=== PATIENT | male | born 2000 | race American Indian/Alaskan Native ===

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

== ENCOUNTER 2021-03-09 15:07 | Emergency (ER) | payer OTHER, MEDICAID ==
[2021-03-09] MEDS ORDERED: Midazolam 1 MG/ML 2 ML SDV IV ONE (15:08)
[2021-03-09] MEDS ORDERED: Ketamine 500 mg/10 ML MDV IV ONE (15:08)
[2021-03-09 16:00] LABS: ANION GAP 12.9 mEq/L (7-13); CHLORIDE,CL 104 mmol/L (98-107); SODIUM,NA 141 mmol/L (136-145)
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
[2021-03-09] MEDS ORDERED: Sodium Chloride 0.9% 1,000 ML IV ONE (16:24)
[2021-03-09] MEDS ORDERED: Lidocaine 1% 30 ML SDV INJECT ONE (16:33)
[2021-03-09] MEDS ORDERED: ceFAZolin 1 GM Vial IV ONE (17:00)
[2021-03-09] MEDS ORDERED: Diphtheria,Pertussis(Acell),Tetanus Vaccine 0.5 ML Syringe IM ONE (17:13)
[2021-03-09] MEDS ORDERED: HYDROmorphone 1 MG/ML Syringe IVPUSH ONE ×2 (17:34→22:10)
--- NOTE | 2021-03-09 17:41 | CR ---
PROCEDURE INFORMATION: Exam: XR Chest Exam date and time: 03/09/2021 5:03 PM Age: 20 years old Clinical indication: Device placement; Chest tube; Additional info: Chest tube placement TECHNIQUE: Imaging protocol: XR of the chest. Views: 1 view. COMPARISON: CR Chest 2V 03/09/2021 3:47 PM FINDINGS: Tubes, catheters and devices: Large bore left chest tube in expected position. Lungs: No consolidation on right. Mild hazy opacities in the mid left lung likely represent residual atelectasis. Pleural spaces: Significantly decreased size of the left pneumothorax with trace residual. No right pneumothorax. No pleural effusion. Heart/Mediastinum: Unremarkable. No cardiomegaly. No mediastinal shift. Bones/joints: No evidence of acute osseous abnormality. IMPRESSION: Significantly decreased size of the left pneumothorax following chest tube placement.
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
[2021-03-09] MEDS ORDERED: HYDROmorphone 0.5 MG/0.5 ML Syringe IVPUSH ONE (20:17)
[2021-03-10] MEDS ORDERED: HYDROmorphone 1 MG/ML Syringe IVPUSH ONE ×2 (00:33→02:43)
== END 2021-03-10 02:56 ==
LOC: DL.ED 15:07
DX: U07.1 COVID-19 (principal); J93.0 Spontaneous tension pneumothorax; Z23 Encounter for immunization
CPT/HCPCS: 32551; 36415; 71045; 71046; 80053; 84484; 85025; 85379; 86140; 90471; 90715; 93005; 96365; 96375; 96376; 99285-25; J0690; J1170; J2250; J7030; U0002

== ENCOUNTER 2022-07-10 21:01 | Emergency (ER) | payer MEDICAID | END 2022-07-10 21:41 | disposition left against medical advice (07) | LOC: DL.ED 21:01 | DX: Z53.21 Procedure and treatment not carried out due to patient leaving prior to being seen by health care provider (principal) ==

== ENCOUNTER 2024-02-06 17:31 | Emergency (ER) | payer SELFPAY ==
[2024-02-06] MEDS: Midazolam 1 MG/ML 2 ML SDV IVPUSH ONE (17:40)
[2024-02-06] MEDS: propofoL 100 ML IV SCH (17:50)
[2024-02-06] MEDS ORDERED: Benzocaine 20% Topical Spray UD MUCMEM ONE (17:58)
[2024-02-06 18:04] LABS: BASOPHILS PERCENT AUTO 0.3 % (0.0-1.0); HEMATOCRIT 45.9 % (40.0-54.0); HEMOGLOBIN 15.7 g/dL (14.0-18.0); LYMPHOCYTES PERCENT AUTO 32.1 % (20.5-50.1); MEAN CORPUSCULAR HEMOGLOBIN 31.8 pg (27.0-34.0); MEAN CORPUSCULAR HGB CONC 34.2 g/dL (33.0-35.0); MEAN CORPUSCULAR VOLUME 93.1 fL (80-100); NEUTROPHILS PERCENT AUTO 53.6 % (42.2-75.2); PLATELET COUNT,PLT 282 10^3/uL (150-450); RED BLOOD CELL COUNT 4.93 10^6/uL (4.6-6.2); WHITE BLOOD CELL COUNT,WBC 8.7 10^3/uL (5.0-10.0)
[2024-02-06 18:11] LABS: INR 1.1 (0.9-1.2); PROTHROMBIN TIME 10.9 SEC (9.0-12.0); PTT,PARTIAL THROMBOPLSTIN TIME 25.7 SEC (22.0-34.0)
[2024-02-06 18:14] LABS: ALANINE AMINOTRANSFERASE,ALT 23 U/L (16-63); ALBUMIN 4.7 g/dL (3.4-5.0); ALKALINE PHOSPHATASE 97 U/L (46-116); ANION GAP 26.3 mEq/L (7-13); ASPARTATE AMNIOTRANSFERASE,AST 20 U/L (15-37); BILIRUBIN TOTAL 1.6 mg/dL (0.2-1.0); BLOOD UREA NITROGEN,BUN 11 mg/dL (7-18); BUN/CREATININE RATIO 5.9 (No establ ref range); CALCIUM 9.6 mg/dL (8.5-10.1); CARBON DIOXIDE,CO2 17 mmol/L (21-32); CHLORIDE,CL 100 mmol/L (98-107); CREATINE KINASE,CK 225 U/L (39-308); CREATININE 1.85 mg/dL (0.70-1.30); ESTIMATED GFR 52 mL/min (>=60); GLUCOSE RANDOM 180 mg/dL (70-99); MAGNESIUM 2.2 mg/dL (1.8-2.4); POTASSIUM,K 3.3 mmol/L (3.5-5.1); PROTEIN TOTAL,TP 9.3 g/dL (6.4-8.2); SODIUM,NA 140 mmol/L (136-145)
[2024-02-06] MEDS: Midazolam 1 MG/ML 2 ML SDV ONE ×2 (18:28→18:45)
[2024-02-06] MEDS: NS with KCl 40mEq 1,000 ML IV SCH (18:38)
[2024-02-06 18:42] LABS: APPEARANCE,URINE SLIGHTLY CLOUDY (CLEAR); BILIRUBIN,URINE SMALL (NEGATIVE); COLOR,URINE YELLOW (YELLOW); GLUCOSE,URINE NEGATIVE (NEGATIVE); KETONES,URINE 40 (NEGATIVE); LEUKOCYTE ESTERASE,URINE NEGATIVE (NEGATIVE); NITRITE,URINE NEGATIVE (NEGATIVE); OCCULT BLOOD,URINE TRACE-INTACT (NEGATIVE); PH,URINE 6.5 (5.0-9.0); PROTEIN,URINE 100 (NEGATIVE); UROBILINOGEN,URINE 0.2 mg/dL (0.2-1.0)
[2024-02-06 18:45] LABS: AMPHETAMINES,URINE POSITIVE (NEGATIVE); BARBITURATES,URINE NEGATIVE (NEGATIVE); BENZODIAZEPINE,URINE NEGATIVE (NEGATIVE); MDMA (ECSTASY), URINE POSITIVE (NEGATIVE); METHADONE,URINE NEGATIVE (NEGATIVE); METHAMPHETAMINES,URINE POSITIVE (NEGATIVE); OPIATES,URINE NEGATIVE (NEGATIVE); OXYCODONE,URINE NEGATIVE (NEGATIVE); PHENCYCLIDINE,URINE NEGATIVE (NEGATIVE); TCA,URINE NEGATIVE (NEGATIVE)
[2024-02-06 19:05] LABS: BACTERIA,URINE MODERATE /HPF (0-FEW/HPF); EPITHELIAL CELLS,URINE FEW /HPF (NOT SEEN); MUCUS,URINE MODERATE /LPF (NOT SEEN)
[2024-02-06] MEDS ORDERED: propofoL 100 ML ONE (19:06)
[2024-02-06] MEDS: Sodium Chloride 0.9% 1,000 ML IV ONE (19:15)
[2024-02-06] MEDS: Sodium Chloride 0.9% 10 ML Syringe FLUSH PRN (19:15)
== END 2024-02-06 19:43 ==
LOC: DL.ED 17:31
DX: T40.411A Poisoning by fentanyl or fentanyl analogs, accidental (unintentional), initial encounter (principal); T27.0XXA Burn of larynx and trachea, initial encounter; F15.10 Other stimulant abuse, uncomplicated; J98.8 Other specified respiratory disorders; Z79.899 Other long term (current) drug therapy
CPT/HCPCS: 31500; 36415; 51702; 71045; 74018; 80053; 80305-QW; 81001; 82550; 83735; 85025; 85610; 85730; 93005; 93010; 96365; 96375; 99285; 99291-25; 99292; J2250; J2704; J3480; J3490; J7030